=== PATIENT | male | born 1930 | race Asian ===

== ENCOUNTER 2016-12-02 13:36 | Inpatient (IN) | payer OTHER, MEDICAID ==
[~2016-12-02] VITALS: Ht 160 cm; Wt 61.2 kg
[~2016-12-02 13:36] MED LIST: ALLO100T21 PO; BICA50TA1 PO; COLC0.6T46 PO; DONE10TA3 PO; FERR325E14 PO; LAC PO; METO25TA PO; PANT40EC PO; ZOLP5TAB1 PO
[2016-12-02 13:39] VITALS: BP 135/79
[2016-12-02] MEDS ORDERED: NACL 0.9% 1,000 ML IV ONE (13:45)
--- NOTE | 2016-12-02 13:53 | NUR ---
Pt placed in bed 8 by EMS.
[2016-12-02] MEDS ORDERED: MELA5TAB4 PO (14:00)
[2016-12-02] MEDS ORDERED: FAMO-90 PO (14:00)
[2016-12-02] MEDS ORDERED: MULT-2308 PO (14:00)
[2016-12-02] MEDS ORDERED: DONE10TA3 PO (14:00)
[2016-12-02] MEDS ORDERED: [UNRECOGNIZED DRUG - CODE] (14:00)
[2016-12-02] MEDS ORDERED: DOCU-67 PO (14:00)
[2016-12-02] MEDS ORDERED: MEMA10TA PO (14:00)
[2016-12-02] MEDS ORDERED: MAGN400S60 PO (14:00)
--- NOTE | 2016-12-02 14:00 | NUR ---
86 YO MALE BIB EMS FROM [facility] FOR NEW ONSET OF LETHAGIC & WEAKNESS .PER EMS HX OF CKD, PT UNABLE TO TALK ,HIS BODY STIFFNESS;DENIES N/V/D; SKIN IS PINK/WARM/DRY; AAOX4 WITH EVEN AND STEADY GAIT; LUNGS CLEAR BL; HR EVEN AND REGULAR; PT DENIES ANY FEVER, CP, SOB, OR COUGH AT THIS TIME; PATIENT STATES PAIN OF 0/10 AT THIS TIME; VSS; PATIENT POSITIONED FOR COMFORT; HOB ELEVATED; BEDRAILS UP X2; BED DOWN. ER MD MADE AWARE OF PT STATUS.
--- NOTE | 2016-12-02 14:12 | NUR ---
Patient being evaluated by physician at bedside.
--- NOTE | 2016-12-02 14:30 | NUR ---
PT HAS DIARRHEA;NOTIFIED ER MD DR CARL.
--- NOTE | 2016-12-02 14:37 | NUR ---
DAUGHTER AT BEDSIDE. PT STATED PT WANTS COCA COLA.
[2016-12-02 14:43] LABS: ANION GAP 10.7 (8-16); CARBON DIOXIDE 30.4 mmol/L (21-32); CHLORIDE 107 mmol/L (98-107); CREATININE 1.2 mg/dL (0.6-1.3); GLUCOSE 139 mg/dL (74-106); POTASSIUM 4.1 mmol/L (3.5-5.1); SODIUM SERUM 144 mmol/L (136-145); UREA NITROGEN, BLOOD 17 mg/dL (7-18)
[2016-12-02 14:48] LABS: BASOPHILS # (AUTO) 0.1 K/uL (0.00-0.22); BASOPHILS % (AUTO) 0.7 % (0.0-2.0); EOSINOPHILS # (AUTO) 0.3 K/uL (0-0.4); EOSINOPHILS % (AUTO) 2.4 % (0.0-4.0); HEMATOCRIT 39.9 % (36-52); HEMOGLOBIN 13.4 g/dL (12.0-18.0); LYMPHOCYTES # (AUTO) 1.6 K/uL (2.0-11.5); LYMPHOCYTES % (AUTO) 12.9 % (20.5-51.1); MEAN CORPUSCULAR HEMOGLOBIN 34 pg (27-31); MEAN CORPUSCULAR HGB CONC 34 g/dL (33-37); MEAN CORPUSCULAR VOLUME 100 fL (80-94); MONOCYTES # (AUTO) 0.9 K/uL (0.8-1.0); MONOCYTES % (AUTO) 7.3 % (1.7-9.3); NEUTROPHILS # (AUTO) 9.6 K/uL (1.8-7.7); NEUTROPHILS % (AUTO) 76.7 % (42.2-75.2); PLATELET COUNT (AUTO) 350 K/uL (140-450); RED CELL DISTRIBUTION WIDTH 13.8 % (11.6-13.7); WHITE BLOOD COUNT (AUTO) 12.5 K/uL (4.8-10.8)
[2016-12-02 14:50] LABS: PARTIAL THROMBOPLASTIN TIME 25.2 secs (22-35.6); PROTHROMBIN TIME 10.6 secs (10.8-13.4)
[2016-12-02 14:54] LABS: LACTIC ACID 2.6 mmol/L (0.4-2.0)
[2016-12-02 14:57] LABS: ALANINE AMINOTRANSFERASE 16 U/L (12-78); ALBUMIN 3.3 g/dL (3.4-5.0); ALKALINE PHOSPHATASE 74 U/L (46-116); ASPARTATE AMINOTRANSFERASE 25 U/L (15-37); TOTAL BILIRUBIN 0.8 mg/dL (0.0-1.0)
[2016-12-02] MEDS ORDERED: NACL 0.9% 1,800 ML IV ONE (15:05)
--- NOTE | 2016-12-02 15:54 | NUR ---
Note undone in EDM - 12/02/16 at 1628 by [email or web address] 86 YO MALE BIB EMS FROM THE [facility] FOR NEW ONSET OF LETHAGIC & WEAKNESS .PER EMS HX OF CKD, PT UNABLE TO TALK ,HIS BODY STIFFNESS;DENIES N/V/D; SKIN IS PINK/WARM/DRY; AAOX4 WITH EVEN AND STEADY GAIT; LUNGS CLEAR BL; HR EVEN AND REGULAR; PT DENIES ANY FEVER, CP, SOB, OR COUGH AT THIS TIME; PATIENT STATES PAIN OF 0/10 AT THIS TIME; VSS; PATIENT POSITIONED FOR COMFORT; HOB ELEVATED; BEDRAILS UP X2; BED DOWN. ER MD MADE AWARE OF PT STATUS.
[2016-12-02 16:15] LABS: APPEARANCE,URINE CLEAR (CLEAR); BILIRUBIN,URINE 1+ (NEGATIVE); BLOOD, URINE NEGATIVE (NEGATIVE); COLOR,URINE YELLOW (YELLOW); LEUKOCYTE ESTERASE ,URINE NEGATIVE (NEGATIVE); NITRITE, URINE NEGATIVE (NEGATIVE); PH,URINE 5.5 (5.0-9.0); PROTEIN,URINE NEGATIVE (NEGATIVE); UGLUCOSE NEGATIVE (NEGATIVE); UROBILINOGEN,URINE 0.2 EU/dL (0.2 - 1)
[2016-12-02 16:18] LABS: ICTOTEST NEGATIVE (NEGATIVE)
--- NOTE | 2016-12-02 16:30 | NUR ---
BP 160/122,P70,R 16. PT OPEN HIS EYES AND TALK TO SON & DAUGHTER, NOTIFIED ER MD DR CARL,; MD AWARE.
[2016-12-02 16:31] LABS: BACTERIA,URINE None Seen /HPF (None Seen); MUCUS,URINE FEW /LPF (None Seen); RBC,URINE NONE SEEN /HPF (0-5); SQUAMOUS EPITHELIAL CELL,UR 0-3 (FEW) /LPF (0-3 (FEW)); WBC,URINE 0-5 (RARE) /HPF (0-5)
[2016-12-02] MEDS ORDERED: ACETAMINOPHEN 325 MG TAB PO PRN (16:40)
[2016-12-02] MEDS ORDERED: ZOLPIDEM 5 MG TAB PO PRN (16:40)
[2016-12-02] MEDS ORDERED: MORPHINE SULFATE 2 MG/ML SYR IVP PRN (16:40)
[2016-12-02] MEDS ORDERED: LORazepam 2 MG/ML VIAL IVP PRN (16:40)
[2016-12-02] MEDS ORDERED: HYDROcodone/APAP 5/325 MG 1 TAB TAB PO PRN (16:40)
[2016-12-02] MEDS ORDERED: ONDANSETRON 4 MG/2 ML VIAL IVP PRN (16:40)
[2016-12-02] MEDS ORDERED: MAGNESIUM HYDROXIDE 2400 MG/30 ML UDC PO PRN (16:40)
[2016-12-02] MEDS ORDERED: LACTOBACILLUS ACIDOPHILUS PO SCH (17:00)
[2016-12-02] MEDS ORDERED: [UNRECOGNIZED DRUG - OTHER] PO SCH (17:00)
--- NOTE | 2016-12-02 17:12 | NUR ---
APatient will be admitted to care of DR BLAIR. Admited to TELE. Will go to room 124A. Belongings list completed. Report to SHELL GAMBINO.
--- NOTE | 2016-12-02 17:35 | NUR ---
ER NURSES CAME W/ PT ON UNIT, ACCOMPANIED BY FAMILY. PT IS AWAKE. UNCERTAIN ABOUT ORIENTATION. INTRODUCED MYSELF AND UPDATED THE BOARD. PT IS HERE W/ GENERALIZED WEAKNESS AND ALOC. RN STATED THAT HE HAD A LOOSE BM, LARGE IN THE ER. PT HAS IV ON R HAND 22G NS WIDE OPEN. SKIN IS INTACT, ONLY SOME REDNESS ON HIS BOTTOM. NO EDEMA NOTED. UPPER EXTREMITIES HAS SOME CONTRACTURES, LE HAS SLIGHT. JR, SON IS THE MAIN BATH MIXER. HE IS ALSO A RN. SON GAVE ALL MEDICAL HX OF PT. MRSA COMPLETE. YELLOW SOCKS, BAND AND SIGN ON DOOR. WILL CONTINUE TO MONITOR PT.
[2016-12-02 18:15] VITALS: BP 136/65
--- NOTE | 2016-12-02 18:59 | NUR ---
FAMILY JUST LEFT. WILL BE BACK TOMORROW. PT SLEEPING. NO SIGNS OF DISTRESS-FLACC 0. WILL CONTINUE TO MONITOR PT.
[2016-12-02] MEDS: DEXT 5% /NACL 0.9% 1,000 ML IV SCH (19:15)
--- NOTE | 2016-12-02 19:38 | NUR ---
ENDORSED PT TO THE PHARMACY GENERAL MANAGER NURSE AT BEDSIDE FOR CONTINUITY OF CARE. PT IS IN STABLE CONDITION.
--- NOTE | 2016-12-02 19:38 | NUR ---
RECEIVED REPORT FROM IMMANUEL GOFF AT BEDSIDE. PT IS APHASIC. ONLY OPEN HIS EYES AND MUMBLING. INITIAL ASSESSMENT DONE. NO S/S OF RESPIRATORY DISTRESS OR SOB NOTED. NO S/S OF PAIN OR ANY DISCOMFORT AT THIS TIME. PLAN OF CARE REVIEWED TO PT BUT UNABLE TO COMPREHEND. CALL LIGHT WITHIN REACH. WILL CONTINUE TO MONITOR.
[2016-12-02 20:00] VITALS: BP 135/67
[2016-12-02] MEDS: DONEPEZIL 10 MG TAB PO SCH (21:00)
[2016-12-02] MEDS: DOCUSATE SODIUM 100 MG GELCAP PO SCH (21:00)
[2016-12-02] MEDS ORDERED: DONEPEZIL 10 MG TAB PO SCH (21:00)
[2016-12-02] MEDS ORDERED: NON-FORMULARY ITEM (Melatonin (Melatonin) 3 MG) PO SCH (21:00)
[2016-12-02] MEDS: FAMOTIDINE 20 MG TAB PO SCH (21:00)
[2016-12-02] MEDS: MEMANTINE 10 MG TAB PO SCH (21:00)
[2016-12-02] MEDS: LACTOBACILLUS RHAMNOSUS GG 1 EACH CAP PO SCH (21:00)
[2016-12-02] MEDS: METOPROLOL 25 MG TAB PO SCH (21:00)
[2016-12-03] VITALS: BP 131/64
--- NOTE | 2016-12-03 00:10 | NUR ---
PT IS SLEEPING RIGHT NOW BUT EASILY AROUSABLE. NO S/S OF ANY DISCOMFORT AT THIS TIME. ALL NEEDS ARE ATTENDED. CALL LIGHT WITHIN REACH. WILL CONTINUE TO MONITOR.
[2016-12-03] MEDS: DEXT 5% /NACL 0.9% 1,000 ML IV SCH ×3 (03:33→23:39)
[2016-12-03 04:00] VITALS: BP 124/61
--- NOTE | 2016-12-03 05:45 | NUR ---
AM CARE RENDERED. BED LINEN CHANGED. REPOSITIONED PATIENT. KEPT CLEAN AND DRY. CALL LIGHT WITHIN REACH. WILL CONTINUE TO MONITOR.
[2016-12-03 06:46] LABS: BASOPHILS # (AUTO) 0.1 K/uL (0.00-0.22); BASOPHILS % (AUTO) 0.6 % (0.0-2.0); EOSINOPHILS # (AUTO) 0.3 K/uL (0-0.4); EOSINOPHILS % (AUTO) 3.7 % (0.0-4.0); HEMATOCRIT 35.7 % (36-52); HEMOGLOBIN 12.2 g/dL (12.0-18.0); LYMPHOCYTES # (AUTO) 1.3 K/uL (2.0-11.5); MEAN CORPUSCULAR HEMOGLOBIN 35 pg (27-31); MEAN CORPUSCULAR HGB CONC 34 g/dL (33-37); MEAN CORPUSCULAR VOLUME 102 fL (80-94); MONOCYTES # (AUTO) 0.6 K/uL (0.8-1.0); MONOCYTES % (AUTO) 7.2 % (1.7-9.3); NEUTROPHILS # (AUTO) 6.1 K/uL (1.8-7.7); NEUTROPHILS % (AUTO) 72.5 % (42.2-75.2); PLATELET COUNT (AUTO) 319 K/uL (140-450); RED BLOOD CELL COUNT(AUTO) 3.49 MIL/uL (4.20-6.10); RED CELL DISTRIBUTION WIDTH 14.1 % (11.6-13.7); WHITE BLOOD COUNT (AUTO) 8.4 K/uL (4.8-10.8)
[2016-12-03 07:05] LABS: ANION GAP 10.8 (8-16); CALCIUM 7.6 mg/dL (8.5-10.1); CHLORIDE 113 mmol/L (98-107); CREATININE 0.9 mg/dL (0.6-1.3); GLUCOSE 105 mg/dL (74-106); POTASSIUM 3.8 mmol/L (3.5-5.1); SODIUM SERUM 147 mmol/L (136-145); UREA NITROGEN, BLOOD 9 mg/dL (7-18)
--- NOTE | 2016-12-03 07:27 | NUR ---
PT HAS NO S/S OF ANY DISCOMFORT. PLAN OF CARE ENDORSE TO EMANUEL GOFF AT BEDSIDE FOR CONTINUITY OF CARE.
--- NOTE | 2016-12-03 07:28 | NUR ---
Patient's Plan of Care was discussed and reviewed with ROSALIA: MORENA
[2016-12-03 08:00] VITALS: BP 159/70
--- NOTE | 2016-12-03 08:00 | NUR ---
Pt in room in bed resting with both eyes closed no S/S of any discomfort notice @ this time nurse continue to monitor pt for comfort
[2016-12-03] MEDS ORDERED: MULTIVITAMIN WITH MINERALS PO SCH (09:00)
[2016-12-03] MEDS: MEMANTINE 10 MG TAB PO SCH ×2 (10:06→21:00)
[2016-12-03] MEDS: FERROUS SULFATE 325 MG TABEC PO SCH (10:06)
[2016-12-03] MEDS: ALLOPURINOL 100 MG TAB PO SCH (10:06)
[2016-12-03] MEDS: MULTIVITAMIN 1 TAB PO SCH (10:07)
[2016-12-03] MEDS: DOCUSATE SODIUM 100 MG GELCAP PO SCH ×2 (10:07→21:00)
[2016-12-03] MEDS: COLCHICINE 0.6 MG TAB PO SCH (10:07)
[2016-12-03] MEDS: METOPROLOL 25 MG TAB PO SCH ×2 (10:08→21:00)
[2016-12-03] MEDS: FAMOTIDINE 20 MG TAB PO SCH ×2 (10:09→21:00)
--- NOTE | 2016-12-03 10:09 | NUR ---
PATIENT HAS BEEN SCREENED AND CATEGORIZED HIGH NUTRITION RISK. PATIENT WILL BE SEEN WITHIN 1-2 DAYS OF ADMISSION. 12/03/16-12/04/[address]
[2016-12-03] MEDS: BICALUTAMIDE 50 MG TAB PO SCH (10:10)
[2016-12-03 12:42] VITALS: BP 117/77
[2016-12-03 15:59] VITALS: BP 148/66
--- NOTE | 2016-12-03 16:00 | NUR ---
Pt continue resting @ this time pt care done this shift as ordered pt reposition Q 2 hours to prevent skin breakdown pt remain clean & dry @ this time
--- NOTE | 2016-12-03 19:25 | NUR ---
RECEIVED FROM AM RN IN BED WITH FAMILY MEMBERS AROUND. MUMBLING. TOTAL CARE. DNR AND ON NPO STATUS. DX. OF CHANGE OF LOC AND PNA. AFEBRILE. CARDIAC TELEMETRY MONITORING 108. WITH RIGHT HAND #22 IVF SITE INFUSING D5 NS AT 100 ML /HOUR. NEEDS WILL BE ANTICIPATED AND WILL BE MET. WILL BE TURNED Q 2H.
[2016-12-03] MEDS: LACTOBACILLUS RHAMNOSUS GG 1 EACH CAP PO SCH (21:00)
[2016-12-03] MEDS: DONEPEZIL 10 MG TAB PO SCH (21:00)
--- NOTE | 2016-12-03 21:00 | NUR ---
CALLED AND TALKED WITH Juan J MCGHEE RE: DIET STATUS NPO . PER MD NOT TO GIVE MEDICATIONS P.O. TILL MD ABAD GETS TO SEE HIM. PT. WITH GENERALIZED WEAKNESS, MUMBLING DX. CHANGE OF LOC. NEEDS ANTICIPATED AND WILL BE MET. TOTAL CARE RT WEAKNESS. WILL BE TURNED Q 2H.
[2016-12-03 23:10] VITALS: BP 144/68
[2016-12-04 00:33] VITALS: BP 119/67
--- NOTE | 2016-12-04 00:42 | NUR ---
TURNED TO SIDES Q 2H. INCONTINENT. PILLOW SUPPORT TO PRESSURE AREAS. SLEEPING WELL AT THIS TIME. CALL LIGHT WITH IN REACH. NO SOB. NO RESTLESSNESS NOTED. BILATERAL SEQUENTIALS IN PLACE.
--- NOTE | 2016-12-04 02:39 | NUR ---
TURNED TO SIDES. SLEEPING. WAKES UP WHEN TURNED OR TOUCHED. NONE VERBAL. TOTAL CARE. PILLOW SUPPORT TO PRESSURE AREAS.
[2016-12-04 05:30] VITALS: BP 138/62
[2016-12-04 06:52] LABS: BASOPHILS # (AUTO) 0.1 K/uL (0.00-0.22); BASOPHILS % (AUTO) 1.1 % (0.0-2.0); EOSINOPHILS # (AUTO) 0.2 K/uL (0-0.4); EOSINOPHILS % (AUTO) 2.2 % (0.0-4.0); HEMATOCRIT 36.9 % (36-52); HEMOGLOBIN 12.4 g/dL (12.0-18.0); LYMPHOCYTES # (AUTO) 1.1 K/uL (2.0-11.5); LYMPHOCYTES % (AUTO) 10.7 % (20.5-51.1); MEAN CORPUSCULAR HEMOGLOBIN 35 pg (27-31); MEAN CORPUSCULAR HGB CONC 34 g/dL (33-37); MEAN CORPUSCULAR VOLUME 103 fL (80-94); MONOCYTES # (AUTO) 0.6 K/uL (0.8-1.0); MONOCYTES % (AUTO) 5.9 % (1.7-9.3); NEUTROPHILS # (AUTO) 8.7 K/uL (1.8-7.7); NEUTROPHILS % (AUTO) 80.1 % (42.2-75.2); PLATELET COUNT (AUTO) 327 K/uL (140-450); RED CELL DISTRIBUTION WIDTH 13.9 % (11.6-13.7); WHITE BLOOD COUNT (AUTO) 10.7 K/uL (4.8-10.8)
[2016-12-04 06:53] LABS: ANION GAP 11.8 (8-16); CALCIUM 7.8 mg/dL (8.5-10.1); CARBON DIOXIDE 27.1 mmol/L (21-32); CHLORIDE 114 mmol/L (98-107); CREATININE 0.9 mg/dL (0.6-1.3); GLUCOSE 107 mg/dL (74-106); POTASSIUM 3.9 mmol/L (3.5-5.1); SODIUM SERUM 149 mmol/L (136-145); UREA NITROGEN, BLOOD 4 mg/dL (7-18)
--- NOTE | 2016-12-04 06:59 | NUR ---
TURNED TO SIDES Q 2H. TOTAL CARE. KEPT CLEAN,DRY AND COMFORTABLE. APHASIC.
--- NOTE | 2016-12-04 07:16 | NUR ---
ENDORSED TO THE NEXT RN FOR CONTINUITY OF CARE. TOTAL CARE. NEEDS ANTICIPATED AND MET.
--- NOTE | 2016-12-04 07:16 | NUR ---
RECEIVE REPORT FROM NIGHT NURSE, PT IS APHASIC, ON ROOM AIR, IV TO RIGHT FA 22G INFUSING WELL, SCD'D NOTED, SKIN INTACT WITH SCABS TO LEFT ELBOW, INITIAL ASSESSMENT COMPLETED, ORIENTED PT TO ROOM AND ENVIRONMENT, REVIEWED PLAN OF CARE WITH PT, PT UNABLE TO VERBALIZED UNDERSTANDING. ALL SAFETY PRECAUTIONS MET. CALL LIGHT WITHIN RAECH. WILL CONTINUE TO MONITOR.
[2016-12-04 08:00] VITALS: BP 147/85
[2016-12-04] MEDS: MEMANTINE 10 MG TAB PO SCH ×2 (09:00→21:00)
[2016-12-04] MEDS: ALLOPURINOL 100 MG TAB PO SCH (09:00)
[2016-12-04] MEDS: FERROUS SULFATE 325 MG TABEC PO SCH (09:00)
[2016-12-04] MEDS: MULTIVITAMIN 1 TAB PO SCH (09:00)
[2016-12-04] MEDS: COLCHICINE 0.6 MG TAB PO SCH (09:00)
[2016-12-04] MEDS: FAMOTIDINE 20 MG TAB PO SCH ×2 (09:00→21:00)
[2016-12-04] MEDS: DOCUSATE SODIUM 100 MG GELCAP PO SCH ×2 (09:00→21:00)
[2016-12-04] MEDS: METOPROLOL 25 MG TAB PO SCH ×2 (09:00→21:00)
[2016-12-04] MEDS: BICALUTAMIDE 50 MG TAB PO SCH (09:00)
--- NOTE | 2016-12-04 09:00 | NUR ---
PO MEDICATIONS NOT GIVEN, PT NPO STATUS. PT CURRENTLY SLEEPING AWAKENS TO NAME, ALL SAFETY PRECAUTIONS MET, CALL LIGHT WITHIN REACH. WILL CONTINUE TO MONITOR.
[2016-12-04] MEDS: DEXT 5% /NACL 0.9% 1,000 ML IV SCH ×2 (09:57→18:13)
[2016-12-04 12:00] VITALS: BP 143/84
--- NOTE | 2016-12-04 12:27 | NUR ---
PT CURRENTLY SLEEPING, DR. ROSSY Weldon IN TO SEE PT, CALL LIGHT WITHIN REACH. WILL CONTINUE TO MONITOR.
[2016-12-04] MEDS ORDERED: LABETALOL 100 MG/20 ML VIAL IV PRN (12:35)
--- NOTE | 2016-12-04 13:01 | NUR ---
12/04/16 RD INITIAL ASSESSMENT COMPLETED PLEASE REFER TO NUTRITION ASSESSMENT UNDER CARE ACTIVITY FOR ESTIMATED NUTRITIONAL NEEDS. 1. WHEN MEDICALLY FEASIBLE INITIATE PO DIET: 2 GM SODIUM, WITH TEXTURE PER ST RECOMMENDATIONS 2. RD TO FOLLOW-UP 2-3 DAYS; HIGH RISK LEONIDAS MANZANO RD
--- NOTE | 2016-12-04 14:35 | NUR ---
PT CURRENTLY AWAKE, MUMBLES WORDS, NO S/S OF RESPIRATORY DISTRESS OR DISCOMFORT NOTED. ALL SAFETY PRECAUTIONS MET. ALL NEEDS MET. WILL CONTINUE TO MONITOR.
[2016-12-04 16:00] VITALS: BP 148/97
--- NOTE | 2016-12-04 16:05 | NUR ---
PT CURRENTLY SLEEPING. OPENS EYES TO NAME. ALL NEEDS MET. CALL LIGHT WITHIN REACH, WILL CONTINUE TO MONITOR.
--- NOTE | 2016-12-04 19:30 | NUR ---
RECEIVED REPORT FROM AM RN IN BED . TOTAL CARE. PT. IS TURNED Q 2H. APHASIC. DX. OF CHANGE OF LOC . TELEMETRY MONITORING. DNR. WITH PRN HTN IV MEDICATION WITH PARAMETER. STILL NPO PENDING SWALLOW EVALUATION CONSULT. PER AM RN SON REFUSED TO HAVE TO DO WITH GTUBE INSERTION IF EVER. NEEDS WILL BE ANTICIPATED AND WILL BE MET.
--- NOTE | 2016-12-04 19:38 | NUR ---
ENDORSED PLAN OF CARE TO NIGHT NURSE, PT IN STABLE CONDITION.
[2016-12-04 20:00] VITALS: BP 132/76
[2016-12-04] MEDS: LACTOBACILLUS RHAMNOSUS GG 1 EACH CAP PO SCH (21:00)
[2016-12-04] MEDS: DONEPEZIL 10 MG TAB PO SCH (21:00)
--- NOTE | 2016-12-04 21:00 | NUR ---
PT. TURNED TO SIDES BY CNAS. TOTAL CARE. NO SOB. FLACC 0-. STILL ON NPO STATUS. FOR SWALLOW EVALUATION TOMORROW ORDERED.
--- NOTE | 2016-12-04 23:00 | NUR ---
NEW IVF SITE INSERTED TO RIGHT WRIST#24 RT OLD IVF SITE INFILTRATED. TOLERATED WELL. NEEDS ANTICIPATED AND MET. KEPT DRY AND CLEAN. T0TAL CARE. TELEMETRY MONITORING. Addendum: 12/05/16 at 0150 by Nikki Jain RN LEFT HAND #24 INSERTED. RIGHT HAND #22 DISCONTINUED RT INFILTRATED .
[2016-12-05 00:59] VITALS: BP 120/73
--- NOTE | 2016-12-05 01:04 | NUR ---
PT. SLEEPING. TURNED TO SIDES Q 2H. PILLOW SUPPORT TO PRESSURE AREAS.
--- NOTE | 2016-12-05 03:28 | NUR ---
TURNED TO SIDES Q2H. KEPT DRY. NO RESTLESSNESS. FLACC 0-. NONE VERBAL. TELEMETRY MONITORING.
[2016-12-05 04:00] VITALS: BP 134/62
[2016-12-05] MEDS: DEXT 5% /NACL 0.9% 1,000 ML IV SCH ×2 (04:48→17:00)
--- NOTE | 2016-12-05 05:08 | NUR ---
PT. TURNED TO SIDES Q 2H. TOTAL CARE. NO SOB. 99% 02 SAT ON ROOM AIR. FLACC 0-. MUMBLING.
[2016-12-05 06:32] LABS: BASOPHILS # (AUTO) 0.1 K/uL (0.00-0.22); BASOPHILS % (AUTO) 0.8 % (0.0-2.0); EOSINOPHILS # (AUTO) 0.2 K/uL (0-0.4); EOSINOPHILS % (AUTO) 1.7 % (0.0-4.0); HEMATOCRIT 38.3 % (36-52); HEMOGLOBIN 13.1 g/dL (12.0-18.0); LYMPHOCYTES % (AUTO) 7.5 % (20.5-51.1); MEAN CORPUSCULAR HEMOGLOBIN 35 pg (27-31); MEAN CORPUSCULAR HGB CONC 34 g/dL (33-37); MEAN CORPUSCULAR VOLUME 102 fL (80-94); MONOCYTES # (AUTO) 0.8 K/uL (0.8-1.0); MONOCYTES % (AUTO) 6.2 % (1.7-9.3); NEUTROPHILS # (AUTO) 11.2 K/uL (1.8-7.7); NEUTROPHILS % (AUTO) 83.8 % (42.2-75.2); PLATELET COUNT (AUTO) 296 K/uL (140-450); RED BLOOD CELL COUNT(AUTO) 3.75 MIL/uL (4.20-6.10); RED CELL DISTRIBUTION WIDTH 13.9 % (11.6-13.7)
[2016-12-05 06:49] LABS: ANION GAP 11.2 (8-16); CALCIUM 7.3 mg/dL (8.5-10.1); CARBON DIOXIDE 24.6 mmol/L (21-32); CHLORIDE 112 mmol/L (98-107); CREATININE 0.9 mg/dL (0.6-1.3); GLUCOSE 218 mg/dL (74-106); SODIUM SERUM 145 mmol/L (136-145); UREA NITROGEN, BLOOD 2 mg/dL (7-18)
[2016-12-05 06:54] LABS: POTASSIUM 2.8 mmol/L (3.5-5.1)
[2016-12-05 06:58] LABS: WHITE BLOOD COUNT (AUTO) 13.3 K/uL (4.8-10.8)
--- NOTE | 2016-12-05 07:17 | NUR ---
Juan J FONG MD RE: K-2.8. ENDORSED TO AM RN FOR CONTINUITY OF CARE.
--- NOTE | 2016-12-05 07:17 | NUR ---
RECEIVE REPORT FROM NIGHT NURSE, PT IS APHASIC MAKING NOISES, ON ROOM AIR, IV TO RIGHT FA 22G INFUSING WELL, SCD'D NOTED, SKIN INTACT WITH SCABS TO LEFT ELBOW, INITIAL ASSESSMENT COMPLETED, ORIENTED PT TO ROOM AND ENVIRONMENT, REVIEWED PLAN OF CARE WITH PT, PT UNABLE TO VERBALIZED UNDERSTANDING. ALL SAFETY PRECAUTIONS MET. CALL LIGHT WITHIN RAECH. WILL CONTINUE TO MONITOR.
--- NOTE | 2016-12-05 07:30 | NUR ---
Juan J MCGHEE CALLED BACK WITH NEW ORDER OF KRIDER 40 MEQS. X 1 FOR K LEVEL OF 2.8-
[2016-12-05 08:00] VITALS: BP 139/80
[2016-12-05] MEDS ORDERED: KCL 20 MEQ/WATER INJ PREMIX 200 ML IV SCH (08:00)
[2016-12-05] MEDS: FAMOTIDINE 20 MG TAB PO SCH ×2 (09:00→21:22)
[2016-12-05] MEDS: ALLOPURINOL 100 MG TAB PO SCH (09:00)
[2016-12-05] MEDS: COLCHICINE 0.6 MG TAB PO SCH (09:00)
[2016-12-05] MEDS: MULTIVITAMIN 1 TAB PO SCH (09:00)
[2016-12-05] MEDS: FERROUS SULFATE 325 MG TABEC PO SCH (09:00)
[2016-12-05] MEDS: MEMANTINE 10 MG TAB PO SCH ×2 (09:00→21:23)
[2016-12-05] MEDS: BICALUTAMIDE 50 MG TAB PO SCH (09:00)
[2016-12-05] MEDS: METOPROLOL 25 MG TAB PO SCH ×2 (09:00→21:22)
[2016-12-05] MEDS: DOCUSATE SODIUM 100 MG GELCAP PO SCH ×3 (09:00→21:21)
--- NOTE | 2016-12-05 09:00 | NUR ---
PO MEDICATIONS NOT GIVEN, AWAITING SWALLOW EVAL. PT CURRENTLY SLEEPING AWAKENS TO TOUCH. ALL NEEDS MET. CALL LIGHT WITHIN REACH. WILL CONTINUE TO MONITOR.
--- NOTE | 2016-12-05 10:45 | NUR ---
PT CURRENTLY SLEEPING, AWAKENS TO TOUCH. CALL LIGHT WITHIN REACH. WILL CONTINUE TO MONITOR.
[2016-12-05 12:00] VITALS: BP 138/70
--- NOTE | 2016-12-05 13:10 | NUR ---
PT SLEEPING NO S/S OF RESPIRATORY DISTRESS NOR DISCOMFORT NOTED. ALL NEEDS MET. CALL LIGHT WITHIN REACH. WILL CONTINUE TO MONITOR.
[2016-12-05] MEDS: Z-GUARD PASTE TP SCH (13:17)
--- NOTE | 2016-12-05 15:10 | NUR ---
CHECKED IN ON PT.NO S/S OF RESPIRATORY DISTRESS NOTED.ALL NEEDS MET.WILL CONTINUE TO MONITOR.
[2016-12-05 16:00] VITALS: BP 138/83
--- NOTE | 2016-12-05 17:11 | NUR ---
* ST NOTE * Pt seen at bedside after receiving clearance from Nsg. Bedside dysphagia and oral mechanism exams completed. See evaluation report for further details. Pt tolerating 4/4 alternating PO trials of puree apple sauce 3 CCs at a time via a spoon w/out s/s of aspiration. Pt also tolerating 4/4 alternating PO trials of honey-thickened apple juice 3-4 CCs at a time via a spoon as well. Pt and caregiver/nsg education completed regarding safe swallow compensatory strategies pt and caregivers/nsg may utilize to aid pt with swallow function and PO intake, with pt and caregiver/nsg verbalizing understanding of clinician's recommendations. Pt however requiring extended amount of time to accept and tolerate 3-5 CCs of puree and HTL textures, suggesting poor prognosis for adequate PO intake to maintain pt's nutrition & hydration PO. Thus it is recommended RD evaluate pt for alternative means of nutrition secondary to pt's poor activity tolerance as well as poor prognosis for adequate PO intake. However pt's family stating they do not prefer artificial means of nutrition for pt at this time. Hence, clinician recommends pt be DCed off NPO status, and a PO diet consistency of Puree textures with Honey-thickened liquids for all meals, requiring CLOSE supervision by caregivers/staff during PO intake to assure STRICT aspiration precautions are in place. Pt requires total assistance with feeding and may be suctioned PRN. No further ST follow up recommended at this time. Pt and caregiver/nursing education completed regarding results of evaluation; benefits of abiding by strict aspiration precautions and recommended PO diet consistency; and prognosis for improvement; as well as referral to RD for alternative means of nutrition secondary to pt's poor activity tolerance and poor PO intake. Recommend: - PO diet consistency of Puree textures with Honey-thickened Liquids for all meals - CLOSE supervision during PO intake by caregivers/staff to assure STRICT aspiration precautions are in place secondary to pt's hx of PNA - Pt requires total assistance with feeding - Suction PRN - RD Referral for alternative means of nutrition secondary to pt at high risk for malnutrition/dehydration due to poor activity tolerance and poor prognosis for PO intake, if MD/pt's family permits No further ST follow up recommended. G8996 CL G8997 CK G8998 CJ NOMS Level 4 Time In/Out 16:30 - 17:15
--- NOTE | 2016-12-05 17:15 | NUR ---
PT AWAKE. ALL NEEDS MET. WILL CONTINUE TO MONITOR.
--- NOTE | 2016-12-05 19:15 | NUR ---
ENDORSED PLAN OF CARE EZE NURSE,PT IN STABLE CONDITION. DAUGHTERS AT BEDSIDE
--- NOTE | 2016-12-05 19:20 | NUR ---
RECEIVED PT FROM LILIANA RN, PT A O X1 NON VERBAL NODDING HIS HEAD FOR ANSWER SIMPLE QUESTION , BEDBOUND IV ON LEFT HAND INFUSING WELL, ON TELEMETRY SR RELATIVES AT BED SIDE INITIAL ASSESSMENT DONE.
[2016-12-05 20:00] VITALS: BP 134/89
--- NOTE | 2016-12-05 21:00 | NUR ---
PT TAKEN HIS MEDIC CRUSHED WITH APPLE SAUCE NOT DISTRESS NOTED
[2016-12-05] MEDS: DONEPEZIL 10 MG TAB PO SCH (21:20)
[2016-12-05] MEDS: LACTOBACILLUS RHAMNOSUS GG 1 EACH CAP PO SCH (21:21)
--- NOTE | 2016-12-05 22:00 | NUR ---
PT MED SURG , TELEMETRY BOX IS REMOVED ORDER
--- NOTE | 2016-12-05 22:27 | NUR ---
A SEMI LIQUID BM NOT ENOUGH SAMPLE FOR C DIFF SPONGE BATH GIVEN , REPOSITIONED ,NOT DISTRESS NOTED
[2016-12-06] VITALS: BP 132/61
--- NOTE | 2016-12-06 01:00 | NUR ---
PT REPOSITIONED Q2H NOT DISTRESS NOTED NO;T BM AT THIS TIME
[2016-12-06] MEDS: Z-GUARD PASTE TP SCH ×2 (01:01→13:32)
[2016-12-06] MEDS: DEXT 5% /NACL 0.9% 1,000 ML IV SCH (02:55)
[2016-12-06 04:00] VITALS: BP 130/70
--- NOTE | 2016-12-06 04:00 | NUR ---
SPONGE BATH GIVEN LINEN CHANGED REPOSITIONED NOT DISTRESS NOTED
[2016-12-06 05:59] LABS: BASOPHILS # (AUTO) 0.1 K/uL (0.00-0.22); BASOPHILS % (AUTO) 0.7 % (0.0-2.0); EOSINOPHILS # (AUTO) 0.3 K/uL (0-0.4); EOSINOPHILS % (AUTO) 2.1 % (0.0-4.0); HEMATOCRIT 32.9 % (36-52); LYMPHOCYTES # (AUTO) 1.1 K/uL (2.0-11.5); LYMPHOCYTES % (AUTO) 7.2 % (20.5-51.1); MEAN CORPUSCULAR HEMOGLOBIN 34 pg (27-31); MEAN CORPUSCULAR HGB CONC 33 g/dL (33-37); MEAN CORPUSCULAR VOLUME 102 fL (80-94); MONOCYTES % (AUTO) 6.3 % (1.7-9.3); NEUTROPHILS # (AUTO) 13.1 K/uL (1.8-7.7); NEUTROPHILS % (AUTO) 83.7 % (42.2-75.2); PLATELET COUNT (AUTO) 268 K/uL (140-450); RED BLOOD CELL COUNT(AUTO) 3.23 MIL/uL (4.20-6.10); RED CELL DISTRIBUTION WIDTH 14.1 % (11.6-13.7)
[2016-12-06 06:30] LABS: ALANINE AMINOTRANSFERASE 10 U/L (12-78); ALBUMIN 1.9 g/dL (3.4-5.0); ALKALINE PHOSPHATASE 60 U/L (46-116); ANION GAP 9.2 (8-16); ASPARTATE AMINOTRANSFERASE 12 U/L (15-37); CALCIUM 7.1 mg/dL (8.5-10.1); CARBON DIOXIDE 25.7 mmol/L (21-32); CHLORIDE 114 mmol/L (98-107); GLUCOSE 104 mg/dL (74-106); SODIUM SERUM 146 mmol/L (136-145); TOTAL BILIRUBIN 0.7 mg/dL (0.0-1.0); TOTAL PROTEIN, SERUM 4.8 g/dL (6.4-8.2); UREA NITROGEN, BLOOD 2 mg/dL (7-18)
[2016-12-06 06:39] LABS: POTASSIUM 2.9 mmol/L (3.5-5.1)
[2016-12-06 06:45] LABS: WHITE BLOOD COUNT (AUTO) 15.6 K/uL (4.8-10.8)
[2016-12-06 06:46] LABS: ANISOCYTOSIS 1+; POIKILOCYTOSIS 1+
--- NOTE | 2016-12-06 06:58 | NUR ---
UNABLE TO COLLECT STOOL SEMI LIQUID , PT REMAIN BEDBOUND NOT DISTRESS NOTED NOT FEVER
--- NOTE | 2016-12-06 07:25 | NUR ---
PT AWAKE AND NON-VERBAL, NO SIGNS OF ACUTE DISTRESS. BREATHING EVEN AND UNLABORED BILATERALLY. SKIN INTACT WITH REDNESS ON SACRUM. BOWEL SOUNDS ACTIVE IN ALL 4 QUADRANTS. BOWEL AND BLADDER INCONTINENCE. FLACC SCORE IS ZERO. PT BEDBOUND, UNABLE TO AMBULATE. IV PATENT AND INFUSING WITH NO REDNESS OR SWELLING AT INSERTION SITE. BED IN LOW POSITION WITH BILATERAL HALF SIDE RAILS UP, CALL LIGHT WITHIN REACH.
[2016-12-06 08:00] VITALS: BP 136/59
[2016-12-06] MEDS: COLCHICINE 0.6 MG TAB PO SCH (09:00)
[2016-12-06] MEDS: FERROUS SULFATE 325 MG TABEC PO SCH (09:00)
[2016-12-06] MEDS: METOPROLOL 25 MG TAB PO SCH ×2 (09:00→21:41)
[2016-12-06] MEDS: ALLOPURINOL 100 MG TAB PO SCH (09:00)
[2016-12-06] MEDS: DOCUSATE SODIUM 100 MG GELCAP PO SCH ×2 (09:00→21:42)
[2016-12-06] MEDS: MULTIVITAMIN 1 TAB PO SCH (09:00)
[2016-12-06] MEDS: FAMOTIDINE 20 MG TAB PO SCH ×2 (09:00→21:41)
[2016-12-06] MEDS: BICALUTAMIDE 50 MG TAB PO SCH (09:00)
[2016-12-06] MEDS ORDERED: POTASSIUM CHLORIDE 40 MEQ, LIDOCAINE 1% 25 MG in NACL 0.9% 250 ML IV SCH (09:00)
[2016-12-06] MEDS: MEMANTINE 10 MG TAB PO SCH ×2 (09:00→21:41)
--- NOTE | 2016-12-06 13:15 | NUR ---
PT SEEN BY DR BABB, NEW ORDERS RECEIVED, NOTED AND WILL CARRY OUT.
--- NOTE | 2016-12-06 13:18 | NUR ---
12/06/16 RD FOLLOW-UP ASSESSMENT COMPLETED PLEASE REFER TO NUTRITION ASSESSMENT UNDER CARE ACTIVITY FOR ESTIMATED NUTRITIONAL NEEDS. 1. WHEN MEDICALLY FEASIBLE, INITIATE PO DIET: REGULAR DIET WITH TEXTURE PER ST RECOMMENDATIONS (PUREE, HONEY THICK LIQUIDS) 2. RD TO FOLLOW-UP 2-3 DAYS; HIGH RISK LEONIDAS MANZANO, RADHA
[2016-12-06] MEDS: POTASSIUM CHL 20 MEQ/D5-1/2NS 1,000 ML IV SCH (13:25)
--- NOTE | 2016-12-06 15:06 | NUR ---
Social Service Note: I faxed patient's medical information to [facility] , no discharge order at this time, keycase assembler Aubrie sandhu.
[2016-12-06 16:00] VITALS: BP 144/66
--- NOTE | 2016-12-06 19:48 | NUR ---
PT AWAKE AND ALERT, NO SIGNS OF ACUTE DISTRESS. ENDORSED PT TO SPINNING LATHE OPERATOR HYDRAULIC NURSE FOR CONTINUITY OF CARE.
--- NOTE | 2016-12-06 19:55 | NUR ---
RECEIVED REPORTS FROM DAY RN, PT RESTING IN BED, AWAKE, ALERT. NO S/S OF ACUTE DISTRESS OR DISCOMFORT NOTED, IV PATENT AND INTACT, VITAL SIGN TAKEN, READ T 97.1, BP 139/63, HR 64, RR19, O2 SAT 99% ON ROOM AIR. RESPIRATION EVEN AND UNLABORED. CALL LIGHT WITHIN REACH, SAFETY MEASURE ENSURED, WILL CONTINUE TO MONITOR.
[2016-12-06] MEDS: LACTOBACILLUS RHAMNOSUS GG 1 EACH CAP PO SCH (21:41)
[2016-12-06] MEDS: DONEPEZIL 10 MG TAB PO SCH (21:42)
--- NOTE | 2016-12-06 21:50 | NUR ---
PT WAS SEEN AND EXAMINED BY DR AGOSTO, NEW ORDERS RECEIVED AND NOTED. PM MEDS GIVEN, PT TOLERATED WELL. NO S/S OF ACUTE DISTRESS NOTED, RESPIRATION EVEN AND UNLABORED. SAFETY MEASURE ENSURED, WILL CONTINUE TO MONITOR
--- NOTE | 2016-12-06 22:00 | NUR ---
NOTED PT HAD SEMI LIQUID STOOL. SPONGE BATH GIVEN, LINEN CHANGED, AND REPOSITIONED. NO S/S OF ACUTE DISTRESS NOTED, CALL LIGHT WITHIN REACH, WILL CONTINUE TO MONITOR
[2016-12-06] MEDS: LEVOFLOXACIN 500 MG/D5W PREMIX 100 ML IV SCH (22:26)
--- NOTE | 2016-12-06 23:05 | NUR ---
NOTED IV INFILTRATED, IV TAKEN OUT, TIP INTACT. NEW IV STARTED RT WRIST, 24G, FLUIDS INFUSING WELL.
--- NOTE | 2016-12-06 23:45 | NUR ---
PT ASLEEP IN BED, NO S/S OF DISTRESS NOTED, RESPIRATION EVEN AND UNLABORED. SAFETY MEASURE ENSURED, CALL LIGHT WITHIN REACH, WILL CONTINUE TO MONITOR
[2016-12-07] VITALS: BP 139/78
[2016-12-07] MEDS: POTASSIUM CHL 20 MEQ/D5-1/2NS 1,000 ML IV SCH (01:03)
[2016-12-07] MEDS: Z-GUARD PASTE TP SCH ×2 (01:44→13:47)
--- NOTE | 2016-12-07 03:20 | NUR ---
URINE COLLECTED, PT RESTING IN BED, NO S/S OF ACUTE DISTRESS OR DISCOMFORT NOTED, CALL LIGHT WITHIN REACH, SAFETY MEASURE ENSURED, WILL CONTINUE TO MONITOR
--- NOTE | 2016-12-07 06:30 | NUR ---
PT STILL ASLEEP, EASY TO AROUSE, RESPIRATION EVEN AND UNLABORED, NO S/S OF ACUTE DISTRESS NOTED, CALL LIGHT WITHIN REACH, SAFETY MEASURE ENSURED, WILL CONTINUE TO MONITOR
[2016-12-07 06:38] LABS: BASOPHILS # (AUTO) 0.1 K/uL (0.00-0.22); BASOPHILS % (AUTO) 0.9 % (0.0-2.0); EOSINOPHILS # (AUTO) 0.2 K/uL (0-0.4); EOSINOPHILS % (AUTO) 2.5 % (0.0-4.0); HEMATOCRIT 34.9 % (36-52); HEMOGLOBIN 11.6 g/dL (12.0-18.0); LYMPHOCYTES # (AUTO) 1.1 K/uL (2.0-11.5); LYMPHOCYTES % (AUTO) 13.3 % (20.5-51.1); MEAN CORPUSCULAR HEMOGLOBIN 34 pg (27-31); MEAN CORPUSCULAR HGB CONC 33 g/dL (33-37); MEAN CORPUSCULAR VOLUME 101 fL (80-94); MONOCYTES # (AUTO) 0.5 K/uL (0.8-1.0); MONOCYTES % (AUTO) 6.4 % (1.7-9.3); NEUTROPHILS # (AUTO) 6.3 K/uL (1.8-7.7); NEUTROPHILS % (AUTO) 76.9 % (42.2-75.2); PLATELET COUNT (AUTO) 295 K/uL (140-450); RED BLOOD CELL COUNT(AUTO) 3.46 MIL/uL (4.20-6.10); RED CELL DISTRIBUTION WIDTH 14.1 % (11.6-13.7); WHITE BLOOD COUNT (AUTO) 8.2 K/uL (4.8-10.8)
[2016-12-07 06:47] LABS: ANION GAP 11.2 (8-16); CALCIUM 7.7 mg/dL (8.5-10.1); CARBON DIOXIDE 25.8 mmol/L (21-32); CHLORIDE 114 mmol/L (98-107); CREATININE 0.9 mg/dL (0.6-1.3); GLUCOSE 103 mg/dL (74-106); SODIUM SERUM 147 mmol/L (136-145); UREA NITROGEN, BLOOD 3 mg/dL (7-18)
[2016-12-07 06:52] LABS: MAGNESIUM 1.5 mg/dL (1.8-2.4); PHOSPHORUS 2.1 mg/dL (2.5-4.9)
--- NOTE | 2016-12-07 07:26 | NUR ---
RECEIVED PT IN BED. ASLEEP, AROUSABLE TO VOICE. ALERT ORIENTED X1. NO SOB NOTED. NO SIGNS AND SYMPTOMS OF ACUTE PAIN OR DISCOMFORT NOTED AT THIS TIME. POSITIVE BOWEL SOUNDS NOTED ON FOUR QUADRANTS. PT BEDBOUND. REDNESS ON SACRUM AND BUTTOCK AREA NOTED. TREATMENT DONE ORDERED. SAFTEY PRECAUTION IN PLACE. CALL LIGHT WITHIN REACH.
--- NOTE | 2016-12-07 07:30 | NUR ---
ENDORSED PLAN OF CARE TO DAY RN, PT IS STABLE
[2016-12-07 08:00] VITALS: BP 156/66
[2016-12-07] MEDS: MULTIVITAMIN 1 TAB PO SCH (08:40)
[2016-12-07] MEDS: ALLOPURINOL 100 MG TAB PO SCH (08:40)
[2016-12-07] MEDS: COLCHICINE 0.6 MG TAB PO SCH (08:40)
[2016-12-07] MEDS: DOCUSATE SODIUM 100 MG GELCAP PO SCH ×2 (08:40→21:51)
[2016-12-07] MEDS: METOPROLOL 25 MG TAB PO SCH ×2 (08:41→21:55)
[2016-12-07] MEDS: FAMOTIDINE 20 MG TAB PO SCH ×2 (08:41→21:52)
[2016-12-07] MEDS: MEMANTINE 10 MG TAB PO SCH ×2 (08:41→21:52)
[2016-12-07] MEDS: FERROUS SULFATE 325 MG TABEC PO SCH (08:41)
[2016-12-07] MEDS: BICALUTAMIDE 50 MG TAB PO SCH (08:43)
[2016-12-07] MEDS: ENOXAPARIN 40 MG/0.4 ML SYR SUBQ SCH (08:44)
--- NOTE | 2016-12-07 09:00 | NUR ---
ASSISTED PT EATING HIS BREAKFAST. ELEVATED BED TO 90 DEGREES. DEMONSTRATED TO PT TO OPEN HIS MOUTH, PT FOLLOWED THE COMMAND. PT TOLERATED WELL HIS PUREE DIET. NO COUGHING, NO SOB NOTED. NO SIGNS AND SYMPTOM OF ACUTE PAIN OR DISCOMFORT NOTED AT THIS TIME.
[2016-12-07 10:11] LABS: APPEARANCE,URINE CLOUDY (CLEAR); BILIRUBIN,URINE NEGATIVE (NEGATIVE); BLOOD, URINE 3+ (NEGATIVE); COLOR,URINE YELLOW (YELLOW); LEUKOCYTE ESTERASE ,URINE TRACE (NEGATIVE); NITRITE, URINE POSITIVE (NEGATIVE); PH,URINE 5.5 (5.0-9.0); PROTEIN,URINE NEGATIVE (NEGATIVE); UGLUCOSE NEGATIVE (NEGATIVE); UROBILINOGEN,URINE 0.2 EU/dL (0.2 - 1)
[2016-12-07 10:28] LABS: BACTERIA,URINE 3+ /HPF (None Seen); RBC,URINE 11-20 (MOD) /HPF (0-5); WBC,URINE 16-25 (MOD) /HPF (0-5)
[2016-12-07 10:29] LABS: MUCUS,URINE 2+ /LPF (None Seen)
--- NOTE | 2016-12-07 10:37 | NUR ---
CALLED [employer]. PAGED DR. MIKAYLA DR. REPAIR CAMERAMAN FOR Juan J ACOSTA, REGARDING POTASSIUM LEVEL OF PT THAT INCREASED FROM 2.9 YESTERDAY TO 4 TODAY AND PT STILL ON CONTINUOUS D5NACL .45% WITH KCL 20 MEQS RUNNING AT 86ML /HR. AND LATEST MG LEVEL IS 1.5. AWAITING CALL BACK.
--- NOTE | 2016-12-07 10:42 | NUR ---
DR. DEGROOT CALLED BACK HE SAID THAT HE WILL CHANGE THE IVF WITH KCL WHEN HE GETS HERE AND ORDERED MG SULFATE 2G IVPB X1. Addendum: 12/07/16 at 1046 by Ester Loja RN DOCTOR EVIDENCE SPECIALIST NAMED DR. HOLLY BABB (NOT DR. DEGROOT)
[2016-12-07] MEDS ORDERED: MAG SULF 2000 MG/WATER PREMIX 50 ML IV SCH (11:30)
--- NOTE | 2016-12-07 12:41 | NUR ---
NEW BAG OF D5 NACL .45 % WITH KCL 20 MEQS IVF AT 86ML PER HR NOT GIVEN DUE TO OTHER IVF STILL RUNNING.
[2016-12-07 16:00] VITALS: BP 138/79
--- NOTE | 2016-12-07 17:00 | NUR ---
DR. BABB CAME TO SEE PT WITH ORDERS MADE AND CARRIED OUT.
[2016-12-07] MEDS: NACL 0.45% 1,000 ML IV SCH (18:06)
--- NOTE | 2016-12-07 19:48 | NUR ---
PT KEPT CLEAN, DRY AND COMFORTABLE, NEEDS ATTENDED. ENDORSED TO STREET LIGHT SERVICER HELPER ON STABLE CONDITION FOR CONTINUITY OF CARE. NO SOB. DENIES ANY PAIN OR DISCOMFORT AT THIS TIME.
--- NOTE | 2016-12-07 19:55 | NUR ---
RECEIVED REPORT FROM DAY RN. PATIENT RESTING IN BED, LOOKS UP WHEN HIS NAME IS CALLED, NO S/S OF ACUTE DISTRESS NOTED, VITAL SIGNS TAKEN, READ , T 97.6, BP 138/74, HR 63, RR 17, O2 SAT 99%. IV INTACT AND PATENT, FLUIDS INFUSING WELL, CHANGED POSITION. CALL LIGHT WITHIN REACH, SAFETY MEASURE ENSURED, WILL CONTINUE TO MONITOR.
[2016-12-07] MEDS: LACTOBACILLUS RHAMNOSUS GG 1 EACH CAP PO SCH (21:52)
[2016-12-07] MEDS: DONEPEZIL 10 MG TAB PO SCH (21:52)
--- NOTE | 2016-12-07 22:00 | NUR ---
PATIENT RESTING IN BED, NO S/S OF ACUTE DISTRESS OR DISCOMFORT NOTED, PM MEDS GIVEN, PATIENT TOLERATED WELL. IV FLUIDS INFUSING WELL, PATENT AND INTACT. PROVIDED SPONGE BATH, AND CHANGED POSITION. CALL LIGHT WITHIN REACH, SAFETY MEASURE ENSURED, WILL CONTINUE TO MONITOR.
[2016-12-07] MEDS: LEVOFLOXACIN 500 MG/D5W PREMIX 100 ML IV SCH (22:03)
--- NOTE | 2016-12-07 23:55 | NUR ---
PATIENT IS SLEEPING IN BED, EASY TO AROUSE WHEN HIS NAME IS CALLED. NO S/S OF ACUTE DISTRESS OR DISCOMFORT NOTED, RESPIRATION EVEN AND UNLABORED. VITAL SIGNS TAKEN, READ , T 96.6, BP 143/72, HR 71, O2 SAT 98%, RR 16. CHANGED POSITION. CALL LIGHT WITHIN REACH, SAFETY MEASURE ENSURED, WILL CONTINUE TO MONITOR
[2016-12-08] VITALS: BP 143/72
[2016-12-08] MEDS: Z-GUARD PASTE TP SCH ×2 (01:28→12:11)
--- NOTE | 2016-12-08 01:59 | NUR ---
PT ASLEEP IN BED, NO S/S OF ACUTE DISTRESS NOTED, CHANGED POSITION. CALL LIGHT WITHIN REACH, SAFETY MEASURE ENSURED, WILL CONTINUE TO MONITOR.
--- NOTE | 2016-12-08 04:04 | NUR ---
PATIENT ASLEEP IN BED, EASY TO AROUSE, CHANGED POSITION, NO S/S OF ACUTE DISTRESS NOTED, RESPIRATION EVEN AND UNLABORED, SAFETY MEASURE ENSURED, WILL CONTINUE TO MONITOR.
[2016-12-08 06:08] LABS: BASOPHILS # (AUTO) 0.1 K/uL (0.00-0.22); BASOPHILS % (AUTO) 1.8 % (0.0-2.0); EOSINOPHILS # (AUTO) 0.2 K/uL (0-0.4); HEMATOCRIT 35.3 % (36-52); LYMPHOCYTES # (AUTO) 0.8 K/uL (2.0-11.5); MEAN CORPUSCULAR HEMOGLOBIN 34 pg (27-31); MEAN CORPUSCULAR HGB CONC 34 g/dL (33-37); MEAN CORPUSCULAR VOLUME 100 fL (80-94); MONOCYTES # (AUTO) 0.5 K/uL (0.8-1.0); MONOCYTES % (AUTO) 7.1 % (1.7-9.3); NEUTROPHILS # (AUTO) 5.5 K/uL (1.8-7.7); NEUTROPHILS % (AUTO) 77.1 % (42.2-75.2); PLATELET COUNT (AUTO) 293 K/uL (140-450); RED BLOOD CELL COUNT(AUTO) 3.54 MIL/uL (4.20-6.10); RED CELL DISTRIBUTION WIDTH 14.1 % (11.6-13.7); WHITE BLOOD COUNT (AUTO) 7.1 K/uL (4.8-10.8)
[2016-12-08 06:37] LABS: ANION GAP 11.2 (8-16); CALCIUM 7.9 mg/dL (8.5-10.1); CARBON DIOXIDE 25.7 mmol/L (21-32); CHLORIDE 112 mmol/L (98-107); CREATININE 0.9 mg/dL (0.6-1.3); GLUCOSE 93 mg/dL (74-106); POTASSIUM 3.9 mmol/L (3.5-5.1); SODIUM SERUM 145 mmol/L (136-145); UREA NITROGEN, BLOOD 4 mg/dL (7-18)
--- NOTE | 2016-12-08 07:30 | NUR ---
ENDORSED PLAN OF CARE TO DAY RN. PATIENT IS STABLE.
--- NOTE | 2016-12-08 07:31 | NUR ---
PT AWAKE AND RESPONSIVE, WITH PERIODS OF CONFUSION. NO SIGNS OF ACUTE DISTRESS. BREATHING EVENLY AND UNLABORED. SKIN IS WARM AND DRY. OFFLOAD TO PRESSURE AREAS. NO SIGNS OF ANY BOWEL/BLADDER DISCOMFORT. FLACC 0. ALL NEEDS ATTENDED, SAFETY PRECAUTIONS MAINTAINED. CALL LIGHT WITHIN REACH.
[2016-12-08 08:00] VITALS: BP 146/62
--- NOTE | 2016-12-08 08:00 | NUR ---
PT RESTING WELL, TURN AND REPOSITIONED, OFFLOAD TO PRESSURE AREAS. FLACC 0, CONTINUE TO MONITOR.
[2016-12-08] MEDS: NACL 0.45% 1,000 ML IV SCH ×2 (08:51→16:45)
[2016-12-08] MEDS: ALLOPURINOL 100 MG TAB PO SCH ×2 (08:53→09:00)
[2016-12-08] MEDS: COLCHICINE 0.6 MG TAB PO SCH ×2 (08:53→09:00)
[2016-12-08] MEDS: DOCUSATE SODIUM 100 MG GELCAP PO SCH ×3 (08:53→21:14)
[2016-12-08] MEDS: FERROUS SULFATE 325 MG TABEC PO SCH ×2 (08:53→09:00)
[2016-12-08] MEDS: MEMANTINE 10 MG TAB PO SCH ×3 (08:53→21:14)
[2016-12-08] MEDS: MULTIVITAMIN 1 TAB PO SCH ×2 (08:53→09:00)
[2016-12-08] MEDS: FAMOTIDINE 20 MG TAB PO SCH ×3 (08:54→21:14)
[2016-12-08] MEDS: METOPROLOL 25 MG TAB PO SCH ×3 (08:54→21:14)
[2016-12-08] MEDS: BICALUTAMIDE 50 MG TAB PO SCH ×2 (08:54→09:00)
[2016-12-08] MEDS: ENOXAPARIN 40 MG/0.4 ML SYR SUBQ SCH (08:55)
--- NOTE | 2016-12-08 09:45 | NUR ---
PT WITH POOR APPETITE, REFUSED AM PO MEDS, RISKS AND BENEFITS EXPLAINED, MADE AWARE.
--- NOTE | 2016-12-08 10:00 | NUR ---
PT RESTING WELL, TURN AND REPOSITIONED, OFFLOAD TO PRESSURE AREAS. FLACC 0, CONTINUE TO MONITOR.
--- NOTE | 2016-12-08 12:00 | NUR ---
PT RESTING WELL, TURN AND REPOSITIONED, OFFLOAD TO PRESSURE AREAS. FLACC 0, CONTINUE TO MONITOR.
--- NOTE | 2016-12-08 14:00 | NUR ---
PT RESTING WELL, TURN AND REPOSITIONED, OFFLOAD TO PRESSURE AREAS. FLACC 0, CONTINUE TO MONITOR.
[2016-12-08 16:00] VITALS: BP 153/73
--- NOTE | 2016-12-08 16:00 | NUR ---
PT RESTING WELL, TURN AND REPOSITIONED, OFFLOAD TO PRESSURE AREAS. FLACC 0, CONTINUE TO MONITOR.
--- NOTE | 2016-12-08 16:45 | NUR ---
WAS SEEN BY HOLLEY MONTGOMERY, NEW LAB ORDERS RECEIVED. NOTED AND CARRIED OUT.
--- NOTE | 2016-12-08 18:00 | NUR ---
PT RESTING WELL, TURN AND REPOSITIONED, OFFLOAD TO PRESSURE AREAS. FLACC 0, CONTINUE TO MONITOR.
--- NOTE | 2016-12-08 18:14 | NUR ---
PT AWAKE, ALERT AND RESPONSIVE, NO SIGNS OF ACUTE DISTRESS. FLACC 0. WILL ENDORSE TO ONCOMING VP CONSTRUCTION NURSE FOR CONTINUITY OF CARE.
--- NOTE | 2016-12-08 19:30 | NUR ---
RECEIVED REPORT FROM DAY RN AT BEDSIDE, PATIENT IS AAOX1, NON VERBAL, ON ROOM AIR NO SOB OR SIGN OF DISTRESS, IV TO LW AND RIGHT WRIST PATENT AND INTACT, SKIN INTACT WITH SACRAL REDNESS, PT DOES NOT APPEAR TO BE IN PAIN FLACC-0, DISCUSSED PLAN OF CARE WITH PATIENT, PATIENT UNABLE TO COMPREHEND, SAFETY MEASURES CHECKED, CALL LIGHT WITHIN REACH. WILL CONTINUE TO MONITOR.
[2016-12-08] MEDS: LEVOFLOXACIN 500 MG/D5W PREMIX 100 ML IV SCH (21:13)
[2016-12-08] MEDS: LACTOBACILLUS RHAMNOSUS GG 1 EACH CAP PO SCH (21:14)
[2016-12-08] MEDS: DONEPEZIL 10 MG TAB PO SCH (21:14)
--- NOTE | 2016-12-08 21:23 | NUR ---
PM MEDS ADMINISTERED CRUSHED AND MIXED WITH APPLE SAUCE, PATIENT TOLERATED WELL, PATIENT COMFORTABLE IN BED, SAFETY MEASURES CHECKED, WILL CONTINUE TO CLOSELY MONITOR.
[2016-12-09] VITALS: BP 121/60
--- NOTE | 2016-12-09 | NUR ---
VITAL SIGNS STABLE, PT SLEEPING COMFORTABLE, NO SIGNS OF DISTRESS, WILL CONTINUE TO CLOSELY MONITOR.
[2016-12-09] MEDS: Z-GUARD PASTE TP SCH ×2 (01:14→09:45)
--- NOTE | 2016-12-09 02:37 | NUR ---
PATIENT SLEEPING, NO SIGN OF DISTRESS, WILL CONTINUE TO MONITOR
[2016-12-09] MEDS: NACL 0.45% 1,000 ML IV SCH (04:04)
--- NOTE | 2016-12-09 05:30 | NUR ---
PATIENT SLEEPING, N0 SIGN OF DISTRESS, WILL CONTINUE TO MONITOR.
[2016-12-09 06:27] LABS: BASOPHILS # (AUTO) 0.1 K/uL (0.00-0.22); BASOPHILS % (AUTO) 2.4 % (0.0-2.0); EOSINOPHILS # (AUTO) 0.1 K/uL (0-0.4); HEMATOCRIT 35.9 % (36-52); HEMOGLOBIN 11.8 g/dL (12.0-18.0); LYMPHOCYTES % (AUTO) 22.1 % (20.5-51.1); MEAN CORPUSCULAR HEMOGLOBIN 33 pg (27-31); MEAN CORPUSCULAR HGB CONC 33 g/dL (33-37); MEAN CORPUSCULAR VOLUME 100 fL (80-94); MONOCYTES # (AUTO) 0.5 K/uL (0.8-1.0); MONOCYTES % (AUTO) 9.7 % (1.7-9.3); NEUTROPHILS % (AUTO) 63.8 % (42.2-75.2); PLATELET COUNT (AUTO) 350 K/uL (140-450); RED BLOOD CELL COUNT(AUTO) 3.61 MIL/uL (4.20-6.10); RED CELL DISTRIBUTION WIDTH 13.9 % (11.6-13.7); WHITE BLOOD COUNT (AUTO) 4.8 K/uL (4.8-10.8)
[2016-12-09 06:59] LABS: MAGNESIUM 1.9 mg/dL (1.8-2.4); PHOSPHORUS 2.7 mg/dL (2.5-4.9)
[2016-12-09 07:02] LABS: ANION GAP 15.7 (8-16); CALCIUM 7.9 mg/dL (8.5-10.1); CHLORIDE 108 mmol/L (98-107); GLUCOSE 78 mg/dL (74-106); POTASSIUM 3.7 mmol/L (3.5-5.1); SODIUM SERUM 144 mmol/L (136-145); UREA NITROGEN, BLOOD 6 mg/dL (7-18)
--- NOTE | 2016-12-09 07:20 | NUR ---
RECEIVED PATIENT REPORT AT BEDSIDE. PATIENT AWAKE BUT APHASIC. NO S/S OF DISTRESS NOTED. PATIENT ON ROOM AIR. IV LINE NOTED TO THE RIGHT WRIST WITH IVF INFUSING WELL. BED LOWERED WITH CALL LIGHT WITHIN REACH. WILL CONTINUE TO MONITOR.
--- NOTE | 2016-12-09 07:30 | NUR ---
ENDORSED PATIENT TO DAY RN AT BEDSIDE, PATIENT IN STABLE CONDITION
[2016-12-09 08:00] VITALS: BP 147/78
[2016-12-09] MEDS: METOPROLOL 25 MG TAB PO SCH (09:00)
[2016-12-09] MEDS: FAMOTIDINE 20 MG TAB PO SCH (09:00)
[2016-12-09] MEDS: FERROUS SULFATE 325 MG TABEC PO SCH (09:00)
[2016-12-09] MEDS: MULTIVITAMIN 1 TAB PO SCH (09:00)
[2016-12-09] MEDS: BICALUTAMIDE 50 MG TAB PO SCH (09:00)
[2016-12-09] MEDS: MEMANTINE 10 MG TAB PO SCH (09:00)
[2016-12-09] MEDS: COLCHICINE 0.6 MG TAB PO SCH (09:00)
[2016-12-09] MEDS: ALLOPURINOL 100 MG TAB PO SCH (09:00)
[2016-12-09] MEDS: DOCUSATE SODIUM 100 MG GELCAP PO SCH (09:00)
--- NOTE | 2016-12-09 09:00 | NUR ---
SCHEDULED PO MEDS NOT ADMINISTERED. PATIENT TOO LETHARGIC TO SWALLOW
--- NOTE | 2016-12-09 09:30 | NUR ---
PATIENT GIVEN BED BATH. SACRAL REDNESS NOTED. Z GUARD APPLIED ORDERED. PATIENT TURNED AND REPOSITIONED FOR COMFORT
[2016-12-09] MEDS: ENOXAPARIN 40 MG/0.4 ML SYR SUBQ SCH (09:37)
--- NOTE | 2016-12-09 11:48 | NUR ---
SS NOTE: PER ANTHONY FROM [facility] ([phone]), PT CAN GO TO ROOM [address] UNDER DR. MIGUE MUNOZ ANYTIME.
--- NOTE | 2016-12-09 12:54 | NUR ---
SPOKE WITH DR BLAIR AND PT CAN DISCHAR[facility] BACK TO [facility] AND CONTINUE ON PO LEVAFLOXACIN 500MG X 4 DAYS.
--- NOTE | 2016-12-09 13:42 | NUR ---
CALLED [facility] [phone] AND SPOKE WITH IVONNE AND SCHEDULED [facility]ORT FOR 1630. PTS ASSIGNED NURSE SALVATORE PROVIDED REHABILITATION CONSTRUCTION SPECIALIST TIME.
--- NOTE | 2016-12-09 15:41 | NUR ---
SPOKE WITH DR AGOSTO AND INFORMED HIM ABOUT THE URINE CULTURE RESULT. ORDERS TO DISCONTINUE LEVAQUIN AND HAVE PATIENT ON NITROFURANTOIN 50MG BID FOR 5 DAYS
--- NOTE | 2016-12-09 15:47 | NUR ---
PATIENT REPORT GIVEN TO ELOY AT [facility]
[2016-12-09] MEDS ORDERED: NITR100C7 PO ×2 (15:49→15:51)
[2016-12-09 16:00] VITALS: BP 154/66
--- NOTE | 2016-12-09 16:28 | NUR ---
PATIENT DISCHARGED TO [facility]. PATIENT PICKED UP BY [facility]. IV LINE DISCONTINUED. PATIENT LEFT WITH ALL OF HIS BELONGINGS AND DISCHARGE PAPERS. PATIENT'S SON, CARLOS WAS INFORMED.
== END 2016-12-09 16:30 | DRG 871 ==
LOC: MED 13:36 → MTU 16:45
PROVIDERS: ADMIT Preventive Medicine Preventive Medicine/Occupational Environmental Medicine; ATTEND Preventive Medicine Preventive Medicine/Occupational Environmental Medicine
DX: A41.9 Sepsis, unspecified organism (principal); E43 Unspecified severe protein-calorie malnutrition; N17.9 Acute kidney failure, unspecified; E87.0 Hyperosmolality and hypernatremia; G30.9 Alzheimer's disease, unspecified; K21.9 Gastro-esophageal reflux disease without esophagitis; I10 Essential (primary) hypertension; M10.9 Gout, unspecified; D64.9 Anemia, unspecified; G47.00 Insomnia, unspecified; Z66 Do not resuscitate; E83.51 Hypocalcemia; F02.80 Dementia in other diseases classified elsewhere, unspecified severity, without behavioral disturbance, psychotic disturbance, mood disturbance, and anxiety; E87.6 Hypokalemia; E83.52 Hypercalcemia; K59.00 Constipation, unspecified; E88.09 Other disorders of plasma-protein metabolism, not elsewhere classified; R73.9 Hyperglycemia, unspecified; R13.10 Dysphagia, unspecified; Z79.899 Other long term (current) drug therapy; Z85.46 Personal history of malignant neoplasm of prostate; Z90.49 Acquired absence of other specified parts of digestive tract; Z68.23 Body mass index [BMI] 23.0-23.9, adult; Z28.21 Immunization not carried out because of patient refusal
CPT/HCPCS: 36415; 70450; 71010; 80048; 80053; 81001; 82948; 83605; 83735; 83880; 84100; 84443; 84484; 85025; 85610; 85730; 87040; 87081; 87086; 87186; 92526; 93005; 96360; 96361; 99285; C1758; J1650; J1956; J2001; J3475; J3480; J7030; J7042; Q0092